=== PATIENT | female | born 2000 | race Caucasian/White ===

== ENCOUNTER 2021-11-11 08:20 | Day surgery (SDC) | payer BC ==
[2021-11-05 13:45] VITALS: BMI 23.1
[2021-11-11] MEDS ORDERED: OXYMETAZOLINE 0.05% NASAL SOLUTION 15 ML BOTTLE NS ONE (08:53)
[2021-11-11] MEDS ORDERED: EPINEPHrine/PF 1 MG/1 ML (1:1,000) AMPULE ONE (08:53)
[2021-11-11] MEDS ORDERED: LIDOCAINE HCL 1%, 10 MG/ML (20ML VIAL) ONE ×2 (08:54→10:43)
[2021-11-11] MEDS ORDERED: PROPOFOL 20 ML ONE (09:33)
[2021-11-11] MEDS ORDERED: MIDAZOLAM HCL 2 MG/2 ML SINGLE DOSE VIAL ONE (09:34)
[2021-11-11] MEDS ORDERED: ROCURONIUM BROMIDE 50 MG/5 ML SYRINGE ONE (09:34)
[2021-11-11] MEDS ORDERED: LIDOCAINE HCL 2% JELLY 10 ML CARTRIDGE ONE (09:35)
[2021-11-11] MEDS ORDERED: KETOROLAC TROMETHAMINE 30 MG/1 ML VIAL ONE (10:06)
[2021-11-11] MEDS ORDERED: ONDANSETRON 4 MG/2 ML VIAL ONE (10:06)
[2021-11-11] MEDS ORDERED: DEXAMETHASONE SOD PHOSPHATE 4 MG/1 ML VIAL ONE (10:06)
[2021-11-11] MEDS ORDERED: ceFAZolin SODIUM 1 GM VIAL ONE (10:06)
[2021-11-11] MEDS ORDERED: TRANEXAMIC ACID 1000 MG/10 ML VIAL ONE (11:17)
[2021-11-11] MEDS ORDERED: BACITRACIN 15 GM TUBE TOPICAL OINTMENT ONE (15:45)
[2021-11-11] MEDS ORDERED: GUM MASTIC/STORAX/MSAL/ALCOHOL 1 DRP DROPSBTL MC ONE (15:50)
[2021-11-11] MEDS ORDERED: BSS (NA/CA/MG/K) BALANCED SALT SOLUTION OPHTH SOLN 15 ML BOTTLE ONE (15:54)
[2021-11-11] MEDS ORDERED: oxyCODONE HCL 5 MG TABLET PO PRN ×3 (16:11→16:28)
[2021-11-11] MEDS ORDERED: ONDANSETRON 4 MG/2 ML VIAL IVPUSH PRN (16:11)
[2021-11-11] MEDS ORDERED: PROMETHAZINE HCL 25 MG/1 ML VIAL IVPUSH PRN (16:11)
[2021-11-11] MEDS ORDERED: LACTATED RINGERS SOLUTION 1,000 ML IV SCH ×2 (16:15→16:30)
[2021-11-11] MEDS ORDERED: ONDANSETRON 4 MG/2 ML VIAL IVPB PRN (16:28)
[2021-11-11 17:13] VITALS: TEMP 98.1
[2021-11-11 17:51] VITALS: BP 101/69; PULSE 93
== END 2021-11-11 18:18 | disposition home or self-care (01) ==
LOC: FASU 08:20
PROVIDERS: ATTEND Plastic Surgery
PROC: 09TL0ZZ Resection of Nasal Turbinate, Open Approach (ICD-10-PCS; 2021-11-11)
PROC: [UNRECOGNIZED PROCEDURE] (2021-11-11)
PROC: 09BM0ZZ Excision of Nasal Septum, Open Approach (ICD-10-PCS; principal; 2021-11-11 10:43)
DX: M95.0 Acquired deformity of nose (principal); J34.3 Hypertrophy of nasal turbinates; J98.8 Other specified respiratory disorders
CPT/HCPCS: 84703; 88304-TC; 94760